=== PATIENT | female | born 1990 | race Two or more races ===

== ENCOUNTER 2018-04-17 00:33 | Emergency (ER) | payer MEDICAID, OTHER ==
[2018-04-17] MEDS ORDERED: NS 1,000 ML IV ONE (00:47)
--- NOTE | 2018-04-17 00:57 | EDPHY ---
H & P Stated Complaint: 17 wks , moderate amt of blood, cramping Time Seen by Provider: 04/17/18 00:54 HPI/ROS: HPI CHIEF COMPLAINT: Vaginal bleeding HISTORY OF PRESENT ILLNESS: Patient is a 27-year-old female, this is her 3rd and she has 2 living children, she states she is about 17 weeks , she presents emergency room with some lower pelvic cramping and vaginal bleeding. Additionally she reports that this started at midnight. No clots, does not have severe abdominal pain. Denies vomiting or fever. She does report she has had increasing urinary frequency recently and some dysuria. She is concerned she may have a urinary tract infection. She decided come the emergency room if she has had some vaginal bleeding. Past Medical History: Denies medical history Past Surgical History: Denies surgical history Social History: Denies drugs alcohol tobacco. Family History: Noncontributory ROS REVIEW OF SYSTEMS: A comprehensive 10 point review of systems is otherwise negative aside from elements mentioned in the history of present illness. Exam Constitutional appears well nontoxic no acute distress, triage nursing summary reviewed, vital signs reviewed, awake/alert. Eyes normal conjunctivae and sclera, EOMI, PERRLA. HENT normal inspection, atraumatic, moist mucus membranes, no epistaxis, neck supple/ no meningismus, no raccoon eyes. Respiratory clear to auscultation bilaterally, normal breath sounds, no respiratory distress, no wheezing. Cardiovascular rate normal, regular rhythm, no murmur, no edema, distal pulses normal. Gastrointestinal soft, non-tender, no rebound, no guarding, normal bowel sounds, no distension, no pulsatile mass. Genitourinary no CVA tenderness. Musculoskeletal no midline vertebral tenderness, full range of motion, no calf swelling, no tenderness of extremities, no meningismus, good pulses, neurovascularly intact. Skin pink, warm, & dry, no rash, skin atraumatic. Neurologic awake, alert and oriented x 3, AAOx3, moves all 4 extremities equally, motor intact, sensory intact, CN II-XII intact, normal cerebellar, normal vision, normal speech. Psychiatric normal mood/affect. Heme/Lymph/Immune no lymphadenopathy. Differential Diagnosis: Includes but is not limited to in a particular order: Urinary tract infection, cystitis, threatened AB, ectopic , placenta previa Medical Decision Making: Plan for this patient IV establishment blood draw, check hCG quant, ABO Rh type, gentle IV fluids, check UA, ultrasound . Re-evaluation: Ultrasound shows a normal IUP no placental previa. Heart rate 150s of fetus. No abnormality seen on ultrasound. Blood work reviewed, Rh positive, urinalysis shows bacteria. Urine culture sent. Macrobid started in the emergency room back bread for home. Recommend close follow up with OBGYN. Additionally return precautions discussed she developed severe pelvic pain, vaginal bleeding, fever, vomiting she needs return emergency room she understands. Source: Patient - Personal History LMP (Females 10-55): Current Tetanus Diphtheria and Acellular Pertussis (TDAP): Yes - Medical/Surgical History Hx Asthma: No Hx Chronic Respiratory Disease: No Hx Diabetes: No Hx Cardiac Disease: No Hx Renal Disease: No Hx Cirrhosis: No Hx Alcoholism: No Hx HIV/AIDS: No Hx Splenectomy or Spleen Trauma: No Other PMH: OVARIAN CYST, , threatened miscarriage hx - Social History Smoking Status: Never smoked Constitutional: Initial Vital Signs Temperature (C) 36.6 C 04/17/18 00:36 Heart Rate 86 04/17/18 00:36 Respiratory Rate 20 04/17/18 00:36 Blood Pressure 124/56 H 04/17/18 00:36 O2 Sat (%) 97 04/17/18 00:36 O2 Delivery Mode Room Air Allergies/Adverse Reactions: No Known Allergies Allergy (Verified 04/17/18 00:36) Home Medications: Medication Instructions Recorded 11/28/15 Oseltamivir Phosphate [Tamiflu] 75 mg PO BID #9 cap 02/05/16 Nitrofurantoin Monohyd/M-Cryst 100 mg PO BID #14 capsule 04/17/18 [Macrobid 100 mg Capsule] Medical Decision Making - Data Points Laboratory Results: Laboratory Results 04/17/18 00:55 04/17/18 00:55 04/17/18 04/17/18 04/17/18 00:55 00:55 00:55 WBC 10.26 10^3/uL H 10^3/uL (3.80-9.50) RBC 4.37 10^6/uL 10^6/uL (4.18-5.33) Hgb 13.1 g/dL g/dL (12.6-16.3) Hct 37.6 % L % (38.0-47.0) MCV 86.0 fL fL (81.5-99.8) MCH 30.0 pg pg (27.9-34.1) MCHC 34.8 g/dL g/dL (32.4-36.7) RDW 12.9 % % (11.5-15.2) Plt Count 211 10^3/uL 10^3/uL (150-400) MPV 10.4 fL fL (8.7-11.7) Neut % (Auto) 66.1 % % (39.3-74.2) Lymph % (Auto) 25.1 % % (15.0-45.0) D[place]key % (Auto) 5.7 % % (4.5-13.0) Eos % (Auto) 2.4 % % (0.6-7.6) Baso % (Auto) 0.3 % % (0.3-1.7) Nucleat RBC Rel Count 0.0 % % (0.0-0.2) Absolute Neuts (auto) 6.78 10^3/uL H 10^3/uL (1.70-6.50) Absolute Lymphs (auto) 2.58 10^3/uL 10^3/uL (1.00-3.00) Absolute Monos (auto) 0.58 10^3/uL 10^3/uL (0.30-0.80) Absolute Eos (auto) 0.25 10^3/uL 10^3/uL (0.03-0.40) Absolute Basos (auto) 0.03 10^3/uL 10^3/uL (0.02-0.10) Absolute Nucleated RBC 0.00 10^3/uL 10^3/uL (0-0.01) Immature Gran % 0.4 % % (0.0-1.1) Immature Gran # 0.04 10^3/uL 10^3/uL (0.00-0.10) Sodium 143 mEq/L mEq/L (135-145) Potassium 3.8 mEq/L mEq/L (3.3-5.0) Chloride 110 mEq/L mEq/L (97-110) Carbon Dioxide 22 mEq/l mEq/l (22-31) Anion Gap 11 mEq/L mEq/L (8-16) BUN 8 mg/dL mg/dL (7-23) Creatinine 0.4 mg/dL L mg/dL (0.6-1.0) Estimated GFR > 60 Glucose 94 mg/dL mg/dL (70-100) Calcium 9.4 mg/dL mg/dL (8.5-10.4) Beta HCG, Quant Pending Urine Color Urine Appearance Urine pH Ur Specific [place] Urine Protein Urine Ketones Urine Blood Urine Nitrate Urine Bilirubin Urine Urobilinogen Ur Leukocyte Esterase Urine RBC Urine WBC Ur Epithelial Cells Urine Bacteria Urine Mucus Urine Glucose Patient ABO/Rh O POSITIVE 04/17/18 00:40 WBC RBC Hgb Hct MCV MCH MCHC RDW Plt Count MPV Neut % (Auto) Lymph % (Auto) D[place]key % (Auto) Eos % (Auto) Baso % (Auto) Nucleat RBC Rel Count Absolute Neuts (auto) Absolute Lymphs (auto) Absolute Monos (auto) Absolute Eos (auto) Absolute Basos (auto) Absolute Nucleated RBC Immature Gran % Immature Gran # Sodium Potassium Chloride Carbon Dioxide Anion Gap BUN Creatinine Estimated GFR Glucose Calcium Beta HCG, Quant Urine Color PALE YELLOW Urine Appearance CLEAR Urine pH 6.0 (5.0-7.5) Ur Specific [place] 1.009 (1.002-1.030) Urine Protein NEGATIVE (NEGATIVE) Urine Ketones NEGATIVE (NEGATIVE) Urine Blood NEGATIVE (NEGATIVE) Urine Nitrate NEGATIVE (NEGATIVE) Urine Bilirubin NEGATIVE (NEGATIVE) Urine Urobilinogen NEGATIVE EU EU (0.2-1.0) Ur Leukocyte Esterase NEGATIVE (NEGATIVE) Urine RBC 3-5 /hpf H /hpf (0-3) Urine WBC 1-3 /hpf /hpf (0-3) Ur Epithelial Cells TRACE /lpf /lpf (NONE-1+) Urine Bacteria TRACE /hpf H /hpf (NONE SEEN) Urine Mucus TRACE /lpf /lpf (NONE-1+) Urine Glucose NEGATIVE (NEGATIVE) Patient ABO/Rh Medications Given: Discontinued Medications Sodium Chloride (Ns) 1,000 mls @ 0 mls/hr IV EDNOW ONE; Wide Open PRN Reason: Protocol Stop: 04/17/18 00:48 Last Admin: 04/17/18 00:53 Dose: 1,000 mls Departure - Departure Disposition: Home, Routine, Self-Care Clinical Impression: Vaginal bleeding Qualifiers: Weeks of gestation: 17 weeks Qualified Code(s): Z3A.17 - 17 weeks gestation of UTI (urinary tract infection) Qualifiers: Urinary tract infection type: acute cystitis Hematuria presence: without hematuria Qualified Code(s): N30.00 - Acute cystitis without hematuria Condition: Good Instructions: Threatened Miscarriage (ED) Additional Instructions: 1. Drink lots of fluids stay well-hydrated 2. Antibiotics as prescribed 3. Return to the emergency room if there is any worsening symptoms questions or concerns. Referrals: Cindi Dunn MD [Primary Care Provider] - As per Instructions Anjali Archibald DO [Doctor of Osteopathy] - As per Instructions Prescriptions: Nitrofurantoin Monohyd/M-Cryst [Macrobid 100 mg Capsule] 100 mg PO BID #14 capsule
[2018-04-17 01:01] LABS: PLATELET COUNT 211 10^3/uL (150-400)
[2018-04-17] MEDS ORDERED: NITROFURANTOIN 100MG PREPACK#2 BTL TAKEHOME ONE (01:38)
[2018-04-17] MEDS ORDERED: NITROFURANTOIN MACROBID 100 MG CAP PO ONE (01:38)
[2018-04-17 01:59] VITALS: BP 111/62
== END 2018-04-17 02:00 | disposition home or self-care (01) ==
DX: O20.8 Other hemorrhage in early pregnancy (principal); O23.42 Unspecified infection of urinary tract in pregnancy, second trimester; B96.89 Other specified bacterial agents as the cause of diseases classified elsewhere; E86.9 Volume depletion, unspecified; Z3A.17 17 weeks gestation of pregnancy

== ENCOUNTER 2018-05-01 22:16 | Emergency (ER) | payer MEDICAID, OTHER ==
--- NOTE | 2018-05-01 22:30 | EDPHY ---
H & P Stated Complaint: allergy seen at [facility] yesterday taking benadry Time Seen by Provider: 05/01/18 22:30 HPI/ROS: HPI CHIEF COMPLAINT: Allergic reaction. HISTORY OF PRESENT ILLNESS: 27-year-old female, she is otherwise healthy however she is 19 weeks , she presents emergency with allergic reaction. Patient reports that she was seen at [facility] yesterday for pruritus and welts. She was given prednisone orally and Benadryl orally and eventually went home. She states today her reaction has returned. She thinks it is worse. She presents emergency room with urticaria and pruritus. She denies any trouble breathing, denies trouble swallowing, denies nausea vomiting or diarrhea denies chest pain or shortness of breath. No stridor. She does have urticaria. She is unsure what is causing her allergy she denies any new foods or contacts including detergents or soaps. Past Medical History: No medical history Past Surgical History: Denies recent surgical history Social History: Denies daily use of drugs alcohol tobacco. Family History: Noncontributory ROS REVIEW OF SYSTEMS: A comprehensive 10 point review of systems is otherwise negative aside from elements mentioned in the history of present illness. Exam Constitutional nontoxic appearing in no acute distress, triage nursing summary reviewed, vital signs reviewed, awake/alert. Eyes normal conjunctivae and sclera, EOMI, PERRLA. HENT normal inspection, atraumatic, moist mucus membranes, no epistaxis, neck supple/ no meningismus, no raccoon eyes. Respiratory no stridor clear to auscultation bilaterally, normal breath sounds , no respiratory distress, no wheezing. Cardiovascular rate normal, regular rhythm, no murmur, no edema, distal pulses normal. Gastrointestinal soft, non-tender, no rebound, no guarding, normal bowel sounds, no distension, no pulsatile mass. Genitourinary no CVA tenderness. Musculoskeletal no midline vertebral tenderness, full range of motion, no calf swelling, no tenderness of extremities, no meningismus, good pulses, neurovascularly intact. Skin diffuse urticaria, pruritus present. Neurologic awake, alert and oriented x 3, AAOx3, moves all 4 extremities equally, motor intact, sensory intact, CN II-XII intact, normal cerebellar, normal vision, normal speech. Psychiatric normal mood/affect. Heme/Lymph/Immune no lymphadenopathy. Differential Diagnosis: Includes but is not limited to in a particular order allergic reaction, severe allergies, urticaria comp pruritus. Anaphylaxis. Medical Decision Making: Plan for this patient IV establishment IV Solu-Medrol IV Benadryl and IV Pepcid. And re-evaluate. She has no signs of acute anaphylaxis here trouble breathing or trouble swallowing. Re-evaluation: 0130: Patient re-evaluated this time. She is feeling much better. Urticaria and hives have pretty much resolved she still has some mild itching. I reordered her IV Benadryl 25 mg. Will reassess shortly. Watch to see if her reaction gets worse. If she has further allergic reaction trouble breathing, trouble swallowing, nausea vomiting abdominal pain will re-evaluate. However this point she appears well vital signs are stable urticaria is improving. 0222AM: Patient re-evaluated this time resting comfortably no acute distress. No further signs of worsening allergic reaction patient like to go home. Recommend prednisone for 3 more days and Benadryl. Return precautions discussed with her she understands return emergency room if she develops any worsening signs of allergic reaction this includes trouble breathing, trouble swallowing, vomiting, worsening rash or itching. Source: Patient - Personal History LMP (Females 10-55): EDC: 09/22/18 Current Tetanus/Diphtheria Vaccine: Yes Current Tetanus Diphtheria and Acellular Pertussis (TDAP): Yes - Medical/Surgical History Hx Asthma: No Hx Chronic Respiratory Disease: No Hx Diabetes: No Hx Cardiac Disease: No Hx Renal Disease: No Hx Cirrhosis: No Hx Alcoholism: No Hx HIV/AIDS: No Hx Splenectomy or Spleen Trauma: No Other PMH: OVARIAN CYST, , threatened miscarriage hx - Social History Smoking Status: Never smoked Constitutional: Initial Vital Signs Temperature (C) 36.5 C 05/01/18 22:19 Heart Rate 84 05/01/18 22:19 Respiratory Rate 18 05/01/18 22:19 O2 Sat (%) 97 05/01/18 22:19 O2 Delivery Mode Room Air Allergies/Adverse Reactions: No Known Allergies Allergy (Verified 04/17/18 00:36) Home Medications: Medication Instructions Recorded 11/28/15 predniSONE 60 mg PO DAILY #9 tab 05/02/18 Medical Decision Making - Data Points Medications Given: Discontinued Medications Diphenhydramine HCl (Benadryl Injection) 50 mg IVP EDNOW ONE Stop: 05/01/18 22:42 Last Admin: 05/01/18 22:49 Dose: 50 mg Diphenhydramine HCl (Benadryl Injection) 25 mg IVP EDNOW ONE Stop: 05/02/18 01:29 Last Admin: 05/02/18 01:32 Dose: 25 mg Famotidine (Pepcid) 20 mg IVP EDNOW ONE Stop: 05/01/18 22:42 Last Admin: 05/01/18 22:53 Dose: 20 mg Methylprednisolone Sodium Succinate (Solu-Medrol) 125 mg IVP EDNOW ONE Stop: 05/01/18 22:42 Last Admin: 05/01/18 22:52 Dose: 125 mg Departure - Departure Disposition: Home, Routine, Self-Care Clinical Impression: Allergic reaction Qualifiers: Encounter type: initial encounter Qualified Code(s): T78.40XA - Allergy, unspecified, initial encounter Condition: Good Instructions: Urticaria (ED), Food Allergy (ED), Anaphylaxis (ED), Allergies ( ED) Additional Instructions: 1. Return to the emergency room if you have worsening symptoms this includes trouble breathing. Referrals: Cindi Dunn MD [Primary Care Provider] - As per Instructions Prescriptions: predniSONE 60 mg PO DAILY #9 tab
[2018-05-01] MEDS ORDERED: FAMOTIDINE 20 MG/2 ML SDV IVP ONE (22:41)
[2018-05-01] MEDS ORDERED: methylPREDNISolone SOD SUCC 125 MG/2 ML VIAL IVP ONE (22:41)
[2018-05-02 02:31] VITALS: BP 95/55
== END 2018-05-02 02:31 | disposition home or self-care (01) ==
DX: O9A.212 Injury, poisoning and certain other consequences of external causes complicating pregnancy, second trimester (principal); T78.40XA Allergy, unspecified, initial encounter; Z3A.19 19 weeks gestation of pregnancy
CPT/HCPCS: 96374; J1200; J2930